=== PATIENT | female | born 1960 | race Caucasian/White ===

== ENCOUNTER → 2022-08-30 10:23 | Outpatient (CLI) | payer OTHER, SELFPAY ==
[2022-08-30 19:12] LABS: Basophils % 0.2 % (0.1-2.0); Eosinophils # 0.1 K/mm3 (0.0-0.4); Eosinophils % 1.6 % (0.1-12.0); Hematocrit 42.5 % (37.0-47.0); Hemoglobin 13.9 g/dL (12.2-16.2); Lymphocytes # 1.9 K/mm3 (0.7-4.5); Lymphocytes % 33.8 % (10-50); Mean Corpuscular HGB Conc 32.6 g/dL (31.8-35.4); Mean Corpuscular Hemoglobin 30.7 pg (27.0-31.2); Mean Platelet Volume 8.5 fl (7.4-10.4); Monocytes # 0.3 K/mm3 (0.1-1.0); Monocytes % 4.9 % (1.7-9.3); Neutrophils # 3.3 K/mm3 (1.8-7.8); Neutrophils % 59.5 % (37.0-80.0); Platelet Count 284 K/mm3 (142-424); Red Blood Count 4.52 M/mm3 (4.20-5.40); White Blood Count 5.6 K/mm3 (4.8-10.8)
[2022-08-30 19:15] LABS: Chloride 102 mmol/L (98-107); Potassium 4.4 mmoL/L (3.5-5.1); Sodium 138 mmol/L (136-145)
[2022-08-30 19:17] LABS: Alanine Aminotransferase 41 U/L (12-78); Alkaline Phosphatase 97 U/L (38-126); Anion Gap 16.4 mEq/L (5-15); Aspartate Amino Transferase 48 U/L (14-36); Bilirubin,Total 0.4 mg/dl (0.2-1.3); Blood Urea Nitrogen 9 mg/dl (7-17); Carbon Dioxide 24 mmol/L (22.0-30.0); Estimated Glomerular Filt Rate 64 ml/min (>60); GFR (African American) 77 ML/MIN (>60); Iron 95 ug/dL (37-170); Triglycerides 268 mg/dl (30-150); VLDL Cholesterol 54 mg/dL (0-40)
[2022-08-30 19:18] LABS: Albumin Level 4.7 g/dl (3.5-5.0); Albumin/Globulin Ratio 1.7 (1.1-1.8); Calcium 9.4 mg/dl (8.4-10.2); Globulin 2.8 g/dL (1.3-3.2); Glucose 90 mg/dl (74-100); HDL Cholesterol 76 mg/dl (40-60); Total Protein,Serum 7.5 g/dl (6.3-8.2)
[2022-08-30 19:41] LABS: Total Iron Binding Capacity 344 ug/dL (265-497)
[2022-08-30 20:04] LABS: Chol/HDL Ratio 4.9 (1-3.5); Cholesterol 370 mg/dl (140-200)
== END ==
PROVIDERS: PCP Family Medicine; Visit Provider Family Medicine
DX: G40.909 Epilepsy, unspecified, not intractable, without status epilepticus (principal); Z79.899 Other long term (current) drug therapy
CPT/HCPCS: 80053; 80061; 83540; 83550; 84443; 85025

== ENCOUNTER → 2022-09-27 14:29 | Outpatient (CLI) | payer OTHER, SELFPAY ==
--- NOTE | 2022-09-27 14:29 | XR_ITS ---
FINAL REPORT CLINICAL HISTORY: copd FINDINGS: Two views of the chest were obtained. The heart size and pulmonary vascularity are within normal limits. The mediastinum is normal. No acute pulmonary abnormality is identified. There is no pneumothorax. The bony thorax is intact. IMPRESSION: No active cardiopulmonary disease. Reviewed, Interpreted and Dictated by Lele Kee III, MD Transcribed by Kiran Dyer Authenticated and [facility]
--- NOTE | 2022-09-27 14:29 | CT_ITS ---
FINAL REPORT TECHNIQUE: Axial images through the abdomen and pelvis were performed without contrast.This study was performed with techniques to keep radiation doses as low as reasonably achievable, (ALARA). Individualized dose reduction techniques using automated exposure control or adjustment of mA and/or kV according to the patient's size were employed. CLINICAL HISTORY: abdominal pain, distention FINDINGS: ABDOMEN: The lung bases are clear. The heart size is normal. Limited images of the liver are unremarkable. Patient is status post cholecystectomy. The spleen is normal. No adrenal mass is identified. The aorta is normal in caliber. There is no significant free fluid or adenopathy. 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 There is a 5 mm, nonobstructing right renal stone. There is no hydronephrosis. PELVIS: The appendix is normal. Patient is status post hysterectomy. The urinary bladder is unremarkable. There is no significant free fluid or adenopathy. IMPRESSION: 5 mm nonobstructing right renal stone without hydronephrosis. Reviewed, Interpreted and Dictated by Lele Kee III, MD Transcribed by Migdalia Khalil Authenticated and [facility]
== END ==
PROVIDERS: PCP Family Medicine; Visit Provider Family Medicine
DX: R10.9 Unspecified abdominal pain (principal); R14.0 Abdominal distension (gaseous); J44.9 Chronic obstructive pulmonary disease, unspecified
CPT/HCPCS: 71046; 74176

== ENCOUNTER → 2022-11-20 12:00 | Outpatient (CLI) | payer OTHER, SELFPAY ==
[2022-11-21 03:04] LABS: Amphetamine/Metha Screen,Urine Negative ng/ml (<1000)
[2022-11-21 03:05] LABS: Barbiturates Screen,Urine Negative ng/ml (<200); Benzodiazepines Screen,Urine Positive ng/ml (<200)
[2022-11-21 03:06] LABS: Cannabinoid Screen,Urine Negative ng/ml (<50)
[2022-11-21 03:07] LABS: Cocaine Screen,Urine Negative ng/ml (<300); Methadone Screen,Urine Negative ng/ml (<300)
[2022-11-21 03:08] LABS: Opiate Screen,Urine Negative ng/ml (<300)
[2022-11-21 03:09] LABS: Phencyclidine Screen,Urine Negative ng/ml (<25)
== END ==
PROVIDERS: PCP Family Medicine; Visit Provider Family Medicine
DX: R30.0 Dysuria (principal); B96.29 Other Escherichia coli [E. coli] as the cause of diseases classified elsewhere
CPT/HCPCS: 80305; 87086; 87088; 87186

== ENCOUNTER 2023-11-14 11:59 | Outpatient (CLI) | payer OTHER, SELFPAY | END 2023-11-14 23:59 | disposition home or self-care (01) | LOC: LAB.DROPOF 11-17 11:59 | PROVIDERS: PCP Family Medicine; Visit Provider Family Medicine | DX: R30.0 Dysuria (principal) | CPT/HCPCS: 87086 ==